=== PATIENT | male | born 1970 | race Caucasian/White ===

== ENCOUNTER → 2017-11-25 08:49 | Outpatient (CLI) | payer MEDICARE, MEDICAID | END | disposition home or self-care (01) | LOC: D.NM 08:00 | DX: R10.9 Unspecified abdominal pain (principal) ==

== ENCOUNTER → 2017-12-13 09:38 | Outpatient (CLI) | payer MEDICARE | END | disposition home or self-care (01) | LOC: D.MRI 12-11 10:00 | DX: R93.8 Abnormal findings on diagnostic imaging of other specified body structures (principal); K76.9 Liver disease, unspecified ==

== ENCOUNTER → 2019-06-23 16:45 | Outpatient (CLI) | payer MEDICARE ==
[2019-06-23 18:00] LABS: ALBUMIN 3.8 g/dL (3.4-5.0); BILIRUBIN - DIRECT 0.07 mg/dL (0.00-0.30); BILIRUBIN - INDIRECT 0.54 mg/dL (0.00-1.00); BILIRUBIN - TOTAL 0.61 mg/dL (0.2-1.3); PROTEIN - SERUM 8.1 g/dL (6.4-8.2)
[2019-06-23 18:20] LABS: INR 0.91 (0.85-1.17); PROTIME 11.8 SECONDS (11.6-15.0)
[2019-06-24 11:10] LABS: HAPTOGLOBIN 153 mg/dL (34-200)
[2019-06-24 12:09] LABS: EBV - EARLY ANTIGEN AB IGG <9.0 U/mL (0.0-8.9); EBV - NUCLEAR ANTIGEN AB IGG >600.0 U/mL (0.0-17.9); EBV VIRAL CAPSID AB IGG >600.0 U/mL (0.0-17.9); EBV VIRAL CAPSID AB IGM <36.0 U/mL (0.0-35.9)
[2019-06-24 13:10] LABS: ANA REFLEX - DIRECT Negative (Negative)
[2019-06-25 13:10] LABS: EHRLICHIA CHAFF IGG Negative (Neg:<1:64); EHRLICHIA CHAFF IGM Negative (Neg:<1:20); HGE IGG TITER Negative (Neg:<1:64); HGE IGM TITER Negative (Neg:<1:20)
[2019-06-25 16:08] LABS: MITOCHONDRIAL ANTIBODY <20.0 Units (0.0-20.0); SMOOTH MUSCLE ABS (ACTIN) 7 Units (0-19)
[2019-06-25 19:08] LABS: HIV-1 RNA BY PCR <20 (())
[2019-07-02 11:10] LABS: F. TULARENSIS - IGG Negative (Negative); F. TULARENSIS - IGM Negative (Negative)
== END | disposition home or self-care (01) ==
LOC: D.LAB 16:45
PROVIDERS: ATTEND Internal Medicine Gastroenterology
DX: K59.00 Constipation, unspecified (principal); R14.1 Gas pain; R16.0 Hepatomegaly, not elsewhere classified